=== PATIENT | female | born 1975 | race Caucasian/White ===

== ENCOUNTER 2024-02-06 03:16 | Observation (INO) | payer BC, SELFPAY ==
[2024-02-06] VITALS (14 sets, daily range): BP systolic 113–142; BP diastolic 46–81; BMI 42.6; BMI 42.7
[2024-02-06] MEDS: TORADOL 30 MG IV ×3 (00:41→23:49)
[2024-02-06] MEDS: ZOFRAN 4 MG IV ×2 (00:42→03:35)
[2024-02-06] MEDS: NSS 1000 IV (00:47)
[2024-02-06 00:55] LABS: % Basophils 0.4 % (0-2); % Eosinophils 0.5 % (0-6); % Immature Granulocytes 0.5 % (0-0.5); % Monocytes 7.9 % (1.7-9.3); % Neutrophils 66.7 % (42.2-75.2); Absolute Lymphocytes 1.9 10^3/uL (1.2-3.4); Absolute Monocytes 0.6 10^3/uL (0.1-0.6); Absolute Neutrophils 5.2 10^3/uL (1.4-6.5); Hemoglobin 13.2 g/dL (12.0-16.0); Mean Corp Hgb Conc. 34.7 g/dL (33.0-37.0); Mean Corpuscular Hgb 31.3 pg (27.0-31.0); Mean Platelet Volume 10.6 fL (7.4-10.4); Nucleated Red Blood Cells % 0 %; Platelet Count 183 10^3/uL (130-400); Red Blood Cell Count 4.22 10^6/uL (4.20-5.40); Red Cell Dist. Width 12.5 % (11.5-14.5); White Blood Cell Count 7.8 10^3/uL (4.8-10.8)
[2024-02-06 01:09] LABS: HCG, Serum Qualitative Screen Negative
--- NOTE | 2024-02-06 01:10 | ED.GENMED ---
History of Present Illness
General
Chief Complaint: Flank Pain
Source: patient
Exam Limitations: none
Time Seen by Provider: 02/06/24 00:33
Travel History
Have you had any contact with someone who has COVID-19?: No
Do you have any symptoms of coronavirus? Fever > 100 degrees, chills, cough, shortness of breath, sore throat, loss of taste or smell, muscle aches, or headache?: No
History of Present Illness
History of Present Illness:
This is a 49 year old female that comes in with c/o flank pain. States that she has right flank pain. States that she had some discomfort on and off for about 1. 5 weeks. Then tonight she has severe pain and she started with vomiting. Denies any
fever, chills, chest pain, SOB, diarrhea, headache, dizziness, urinary burning.
Past History
Past History
ED Past Medical History: Hypercholesterolemia and Psychiatric (Depression)
ED Past Surgical History: Tonsilectomy (and adenoids)
Social History
Tobacco: Former smoker
Alcohol: Occasional
Personal:
Living: with family
Review of Systems
Review of Systems
All Other Systems: ROS reviewed and negative except as documented in HPI and ROS
Constitutional: Reports no symptoms; Denies fever or chills
EENT: Reports no symptoms
Respiratory: Reports no symptoms; Denies cough or trouble breathing
Cardiac: Reports no symptoms; Denies chest pain
ABD/GI: Reports nausea and vomiting; Denies abdominal pain or diarrhea
: Reports flank pain; Denies dysuria, frequency or urgency
Musculoskeletal: Reports no symptoms
Skin: Reports no symptoms
Neurological: Reports no symptoms; Denies dizzy or headache
Psychiatric: Reports no symptoms
Phy Exam
General Physical Exam
General Presentation: moderate distress
General age: appears stated age
General Skin: warm and dry
General Habitus: normal
General Mental: alert
General Hydration: appears well hydrated
ENT Exam
ENT Exam: TM's normal, pharynx normal and neck supple
Eye Exam
Eye Exam: EOMI
Cardiovascular Exam
Cardiovascular Exam: regular rate/rhythm, no edema, no murmur and normal peripheral pulses
Pulmonary Exam
Pulmonary Exam: lungs clear, no respiratory distress, no rales, chest non tender, no crackles, no rhonchi, no wheezing and no cough
Gastrointestinal Exam
Gastrointestinal Exam: normal bowel sounds, soft, no organomegaly, no pulsatile mass, non distended, cva tenderness (Right sided slight) and tender (Very sight right sided tenderness)
Musculoskeletal Exam
Musculoskeletal Exam: full ROM and no edema
Skin Exam
Skin Exam: normal color, warm/dry, no rash and no petechia
Psychiatric Exam
Psychiatric Exam: normal mood/affect
Course
Orders/Labs/Results
Orders:
Orders
02/06/24 00:38
Ketorolac [Toradol] 30 mg .ROUTE .STK-MED ONE
Ondansetron Injectable [Zofran] 4 mg .ROUTE .STK-MED ONE
02/06/24 00:39
IV Insert/Care/Rem.- Treatment PRN
Test Result ONCE
02/06/24 00:40
Ketorolac [Toradol] 30 mg IV NOW STA
Ondansetron Injectable [Zofran] 4 mg IV NOW STA
02/06/24 00:43
0.9% Sodium Chloride 1000 ml [Nss] 1,000 ml IV BOLUS
02/06/24 00:44
CT Abd/pel Without Iv Or Oral Urgent
Comment:
Reason For Exam: Right flank pain
Urinalysis Reflex To Culture Urgent
02/06/24 00:49
Complete Blood Count/With Diff Urgent
Comprehensive Metabolic Panel Urgent
HCG, Serum Qualitative Screen Urgent
02/06/24 01:42
Diphenhydramine [Benadryl] 50 mg .ROUTE .STK-MED ONE
Prochlorperazine [Compazine] 10 mg .ROUTE .STK-MED ONE
02/06/24 01:43
Diphenhydramine [Benadryl] 25 mg IM NOW STA
02/06/24 01:44
Diphenhydramine [Benadryl] 25 mg IV NOW STA
02/06/24 01:45
Prochlorperazine [Compazine] 10 mg IV NOW STA
Abnormal Lab Results
02/06/24
00:49
MCH 31.3 H pg
(27.0-31.0)
MPV 10.6 H fL
(7.4-10.4)
Glucose 144 H mg/dl
(70-99)
02/06/24 00:49
02/06/24 00:49
CBC normal. HCG negative. Glucose nonfasting
Vital Signs
Initial and Last Documented VS:
Initial Vital Signs
Temp Pulse Resp BP Pulse Ox
97.2 F 90 18 142/78 98
02/06/24 00:13 02/06/24 00:13 02/06/24 00:13 02/06/24 00:13 02/06/24 00:13
Last Documented Vital Signs
Temp Pulse Resp BP Pulse Ox
97.2 F 66 16 124/49 100
02/06/24 00:13 02/06/24 02:03 02/06/24 02:03 02/06/24 02:03 02/06/24 02:03
MDM/Problems Addressed
Differential Diagnosis Includes:
Renal calculus,
MDM/Problems Addressed:
This is a 49 year old female that comes in with c/o right flank pain. State that she has had some discomfort on and off for about 1.5 weeks. Then tonight she has severe pain and started to vomit.
Will get labs, CT scan and give IV fluids and medicate for pain and vomiting.
Back into see patient. Explained that she has a 12 mm stone in the proximal ureter. Spoke with Dr. Huggins and will have the house STAMP PAD FINISHER admit to his service. Plan to keep NPO and place stent today.
Chronic conditions affecting care:
NA
Acute Exacerbation and/or Progression of Chronic Illness:
NA
*Radiology
Radiology exam reviewed: radiology read reviewed (CT night hawk- 12 mm stone within the proximal right ureter resulting in moderate to severe right hydroureteronephrosis. Additional bilateral nonobstructing nephrolithiasis. No bowel obstruction.
Normal gallbladder and appendix. Incidental: no hepatic or pancreatic mass. No abd aortic aneurysm.. ) and other (CT cont- No acuet osseous abnormality. No acute abnormality with in the visualized lungs. No acute abnormality within the visualized
soft tissues. )
*Pulse Oximetry
Patient hypoxic: no
*EKG
Interpreted by ED Provider?: NA
Rate: EKG- N/A
*Maintenance Mechanic Supervisor Interpretation
Rate: Maintenance Mechanic Supervisor- N/A
*Critical Care Note
Total Time (30-74mins, 75-104mins- exclusive of procedures): Not Applicable
ED Attending Note
-
Portions of this chart may have been created with voice recognition software.� Occasional wrong word or��sound alike� substitutions may have occurred due to the inherent limitations of voice recognition software.
Discharge Plan
Departure
Patient Disposition: Admit
Date of Disposition: 02/06/24
Time of Disposition: 02:38
Admit to: Med/Surg
Presentation/result/management discussed w/ accepting MD/DO: Dr. Joseluis
Patient with high blood pressure during this ER visit?: No
Condition: Good
Discharge Problem:
Renal calculus, right
Prescriptions:
No Action
atorvastatin [Lipitor] 10 mg Tablet
10 mg PO DAILY
sertraline [Zoloft] 25 mg Tablet
25 mg PO DAILY
loratadine [Claritin] 10 mg Tablet
10 mg PO DAILY
calcium carbonate-vitamin D3 [Calcarb 600 With Vitamin D] 600 mg-10 mcg (400 unit) Tablet
1 tab PO DAILY
Probiotic 3 billion cell Capsule
3,000 mmu cells PO DAILY
Scaleform Immune Health 45-3.75-50 mg Tablet,Chewable
1 tab PO DAILY
Referrals:
PRIVATE,PHYSICIAN [Family Provider] -
Interventions
Interventions:
*Risk Screen - Suicide Last Done: 02/06/24 00:13
*General Assessment Last Done: 02/06/24 00:28
*Neglect/Abuse Screening Last Done: 02/06/24 00:13
ED- Fall Risk Assessment Last Done: 02/06/24 00:28
*ED COVID-19 Vaccine History Last Done: 02/06/24 00:28
XS-Bctlia-Mfuvlltfrk Assessment Last Done: 02/06/24 00:28
ED-Female Genitourinary Assessment Last Done: 02/06/24 00:28
Discharge Date and Time
Print Language: NIGERIAN
[2024-02-06 01:11] LABS: ALT (SGPT) 22 U/L (0-35); AST (SGOT) 25 U/L (14-36); Albumin 4.2 g/dl (3.5-5.0); Alkaline Phosphatase 58 U/L (38-126); Blood Urea Nitrogen 14 mg/dl (7-17); Calcium 9.2 mg/dl (8.4-10.2); Carbon Dioxide 26 mmol/L (22-30); Chloride 104 mmol/L (98-107); Estimated Creatinine Clearance 104 ml/min; Glucose 144 mg/dl (70-99); Potassium 3.6 mmol/L (3.5-5.1); Sodium 137 mmol/L (135-145); Total Bilirubin 0.4 mg/dl (0.2-1.3); eGFR > 60.00
[2024-02-06] MEDS: COMPAZINE 10 MG IV (01:45)
[2024-02-06] MEDS: BENADRYL 25 MG IV (01:46)
[2024-02-06] MEDS: FLOMAX 0.400000000000000022 MG PO (02:31)
[2024-02-06 03:45] LABS: Urine Albumin Trace (Neg - Trace); Urine Bilirubin Negative (Negative); Urine Character Slightly Cloudy (Clear); Urine Color Yellow; Urine Glucose Negative (Negative); Urine Ketone 3+ (Negative); Urine Leukocyte 2+ (Negative); Urine Nitrite Negative (Negative); Urine Occult Blood 3+ (Negative); Urine Specific Gravity 1.025 (<1.030); Urine Urobilinogen Negative (Neg - 1+)
[2024-02-06 04:11] LABS: Urine Bacteria Moderate (Negative); Urine Squamous Cell 0-2 /LPF (Few); Urine White Cell 16-20 /HPF (0-5)
--- NOTE | 2024-02-06 04:35 | HPS.HSE ---
Addendum entered and electronically signed by Darinel Huggins Jr., MD 02/06/24 07:07:
pt seen independently this am
reviewed pmh/exam and labs-ct
to OR today for cysto/right ureteral stent
reviewed risks, benefits, alternatives and disabilities including romy for second stage procedure and possible need for perc tube given large stone size
pt consents- will bring to OR when room available
Original Note:
Family Physician
-
Family Physician: PHYSICIAN PRIVATE
Chief Complaint
-
right flank pain and vomiting
History of Present Illness
This is a pleasant but clearly uncomfortable 49 year old female who come to the ED with worsening right flank pain and vomiting. The pain has steadily increased over the past week or so with nothing making it better at home. PMH includes
hypercholesterolemia and depression. Previous U/S on 12/14/2017 found several non-obstructing kidney stones on R and L sides. Toradol has been effective for her pain in ED but nausea appears to be bothersome. Compazine and Zofran has been given with
some effect.
Medical History
Past Medical History
Past Medical History: Reports Hypercholesterolemia, Psychiatric (depression) and Other
Additional Past Medical History:
kidney stones
Past Surgical History: Reports Tonsilectomy
Social History
Tobacco: Former Smoker
Alcohol: Occasional
Drug: None
Personal:
Living: With Family
Employment: Employed
Family History
Family History: Hypertension
Allergies / Home Medications
Allergies reflects when Allergies were last updated in [facility].
Home Medications with original date entered in [facility]
Allergy/Medication List:
Allergies
Allergy/AdvReac Type Severity Reaction Status Date / Time
latex AdvReac Unknown Verified 02/06/24 00:16
Adhesives AdvReac Itching Uncoded 02/06/24 00:16
oral antibiotics AdvReac GI upset Uncoded 02/06/24 00:16
Home Medications
atorvastatin 10 mg tablet (Lipitor) 10 mg PO DAILY 02/06/24
calcium carbonate 600 mg-vitamin D3 10 mcg (400 unit) tablet 1 tab PO DAILY 02/06/24
lactobacillus combination no.4 3 billion cell capsule (Probiotic) 3,000 mmu cells PO DAILY 02/06/24
loratadine 10 mg tablet (Claritin) 10 mg PO DAILY 02/06/24
sertraline 25 mg tablet (Zoloft) 25 mg PO DAILY 02/06/24
vitamin C 45 mg-zinc citrate 3.75 mg-elderberry 50 mg chewable tablet (swabr) 1 tab PO DAILY 02/06/24
Review of Systems
-
History Source: Patient and Coordinated Provider
Constitutional: Reports Fatigue
EENT: Reports No Symptoms
Respiratory: Reports No Symptoms
Cardiac: Reports No Symptoms
Abdomen/GI: Reports Nausea
: Reports Flank Pain (right)
Musculoskeletal: Reports No Symptoms
Skin: Reports No Symptoms
Neurological: Reports No Symptoms
Endocrine: Reports No Symptoms
Hematologic/Lymphatic: Reports No Symptoms
Psych: Reports No Symptoms
Physical Exam
Vital Signs
Vital Signs
Temp Pulse Resp BP Pulse Ox
98.3 F 77 16 140/81 95
02/06/24 04:29 02/06/24 04:29 02/06/24 04:29 02/06/24 04:29 02/06/24 04:29
Physical Exam
General: Well Developed, Well Nourished and Pain
HEENT: NormoCephalic, Atraumatic and PERRLA
Respiratory: Clear and Non Labored Respirations
Cardiac: Regular Rhythm
Breast: Deferred by me
GI: Soft, Non Tender and Non Distended
Rectal: Deferred by Provider
Genito-urinary: Clear Urine
Musculoskeletal: No Clubbing and No Cyanosis
Skin: Warm and Dry
Neuro: Awake, Alert, AO x 3, No Motor Deficits and Nonfocal/grossly intact
Hematologic/Lymphatic: No Lymphadenopathy
Psych: Calm
Laboratory Results
-
Laboratory Results
Total Bilirubin 0.4 mg/dl (0.2-1.3) 02/06/24 00:49
AST 25 U/L (14-36) 02/06/24 00:49
ALT 22 U/L (0-35) 02/06/24 00:49
Alkaline Phosphatase 58 U/L (38-126) 02/06/24 00:49
Data Reviewed
-
CT Scan: Report Reviewed by me
Lab Data: Labs Reviewed by me
Old Records: Reviewed
Impression/Plan
-
IMPRESSION: right hydroureteronephrosis
PLAN: This is a pleasant but clearly uncomfortable 49 year old female who come to the ED with worsening right flank pain and vomiting. The pain has steadily increased over the past week or so with nothing making it better at home. PMH includes
hypercholesterolemia and depression. Previous U/S on 12/14/2017 found several non-obstructing kidney stones on R and L sides. Toradol has been effective for her pain in ED but nausea appears to be bothersome. Compazine and Zofran has been given with
some effect.
*Severe right hydroureteronephrosis: NPO, Zofran IV, dilaudid IV pain, NS IVF.
*Hypercholesterolemia: Lipitor
*Depression: Zoloft
*DVT propylaxis: SCDs, oob
*Disposition: FC. Urology Service
--- NOTE | 2024-02-06 06:06 | PTCARENOTE ---
Pt arrived to floor from ED at aprox 0420 this am. Pt having nausea and was already given zofran and compazine in ED. No medications due at this time. Pt with no pain. Pt admission and assessment done. Vitals stable. Pt instructed to ring for
assistance.
[2024-02-06] MEDS: DILAUDID 1 MG IV (07:22)
[2024-02-06] MEDS: PHENERGAN 51 MG IV (07:30)
[2024-02-06 08:17] LABS: Hematocrit 37.2 % (37.0-47.0); Hemoglobin 12.7 g/dL (12.0-16.0); Mean Corp Hgb Conc. 34.1 g/dL (33.0-37.0); Mean Corpuscular Hgb 31.1 pg (27.0-31.0); Mean Corpuscular Volume 91.2 fL (81.0-99.0); Mean Platelet Volume 11.5 fL (7.4-10.4); Platelet Count 168 10^3/uL (130-400); Red Blood Cell Count 4.08 10^6/uL (4.20-5.40); Red Cell Dist. Width 12.6 % (11.5-14.5); White Blood Cell Count 7.6 10^3/uL (4.8-10.8)
[2024-02-06] MEDS: NSS with KCL 20 MEQ 1000 IV (08:20)
[2024-02-06] MEDS: TORADOL IV (08:26)
[2024-02-06 09:05] LABS: Blood Urea Nitrogen 14 mg/dl (7-17); Calcium 8.8 mg/dl (8.4-10.2); Carbon Dioxide 24 mmol/L (22-30); Chloride 105 mmol/L (98-107); Estimated Creatinine Clearance 102 ml/min; Glucose 131 mg/dl (70-99); Potassium 4.1 mmol/L (3.5-5.1); Sodium 133 mmol/L (135-145); eGFR > 60.00
--- NOTE | 2024-02-06 12:44 | W.IMMPOSTOP ---
Surgical Immed Post Op Note
-
Primary Surgeon:
jenny
Assisting Surgeon:
Pre-op Diagnosis:
obstructing right ureteral stone
Post-op Diagnosis:
same
Procedure Performed:
cysto/right retrograde/right ureteral stent
Anesthesia Type:
gen
Specimen / Cultures:
ucx
Estimated Blood Loss:
2cc
Complications:
none
Operative Findings:
sig impaction/obstruction of right ureter from large stone
original pass of outside ureteral lumen with extrav of contrast
was able to reposition wire into renal pelvis and place 05/09 stent
pedraza placed
relayed findings to and
she currently feels good in pacu- no fevers/pain or nausea
will observe- perc tube placement for any decline clinically
--- NOTE | 2024-02-06 13:17 | CM ---
Reviewed the chart notes and spoke with the patient's spouse at the bedside. Patient to OR. The patient is being admitted under observational status. Observational letter provided and explained. No questions with regards to the letter.
The patient resides with her spouse in a two story home with two steps to enter. The patient uses no DME/no VN/no SNF. The patient's pharmacy of choice is the [facility] Nomi Su CM continues to be available to patient/family and is
monitoring medical plan for needs at discharge.
Plan: Discharge to home with no anticipated needs being identified at this time.
[2024-02-06] MEDS: OSCAL 500 + D PO (13:21)
[2024-02-06] MEDS: VISBIOME PO (13:21)
--- NOTE | 2024-02-06 13:51 | PTCARENOTE ---
Pt arrived back to 2 [address] from PACU s/p cysto, R stent placement. Pt AAOx3, IVF infusing, Bearden catheter in place with stat lock. Pt states no pain at this time. Pt re-oriented to call henley and room, bed locked and in lowest position, call henley
within reach.
[2024-02-06] MEDS: ZOLOFT 25 MG PO (21:26)
[2024-02-06] MEDS: CLARITIN 10 MG PO (21:26)
[2024-02-06] MEDS: LIPITOR 10 MG PO (21:26)
[2024-02-07 03:20] VITALS: BP 119/74
[2024-02-07 06:25] LABS: Hematocrit 36.9 % (37.0-47.0); Hemoglobin 12.3 g/dL (12.0-16.0); Mean Corp Hgb Conc. 33.3 g/dL (33.0-37.0); Mean Corpuscular Volume 92.9 fL (81.0-99.0); Platelet Count 171 10^3/uL (130-400); Red Blood Cell Count 3.97 10^6/uL (4.20-5.40); Red Cell Dist. Width 12.6 % (11.5-14.5); White Blood Cell Count 7.5 10^3/uL (4.8-10.8)
[2024-02-07 06:58] LABS: Blood Urea Nitrogen 12 mg/dl (7-17); Calcium 8.7 mg/dl (8.4-10.2); Carbon Dioxide 27 mmol/L (22-30); Chloride 107 mmol/L (98-107); Estimated Creatinine Clearance 102 ml/min; Glucose 102 mg/dl (70-99); Sodium 137 mmol/L (135-145); eGFR > 60.00
[2024-02-07 07:08] VITALS: BP 134/82
--- NOTE | 2024-02-07 08:39 | W.PN.URO.CBU ---
Today's Communication / Plan
-
KUB
continue pedraza
plan to remove pedraza in am and likely discharge
Assessment / Plan
-
large obstructing right sided stone- difficult stent placement
? UTI
pt feeling well
labs nl
check KUB
keep pedraza additional 24hrs- then remove
continue levaquin- await ucx
Diagnosis
-
Date of Service: February 07, 2024
-
Patient Diagnosis:
large obstructing stone
UTI
Post Op Day:
right ureteral stent placement 02/05
Subjective
-
pt feels great
no pain
eating
had been UOON
urine clear
no fevers/wbc nl- ucx pending
Objective
-
Vital Signs
Temp Pulse Resp BP Pulse Ox
99 F 83 17 134/82 95
02/07/24 07:08 02/07/24 07:08 02/07/24 07:08 02/07/24 07:08 02/07/24 07:08
Intake and Output
02/06/24 02/07/24 02/08/24
06:59 06:59 06:59
Intake Total 1110 / 1110
Output Total 2775 / 2775
Balance -1665 / -1665
Intake:
Oral fluids 960 / 960
IV fluids (Total) 150 / 150
Normosol 150 / 150
Output:
Urine, Pedraza 1725 / 1725
Urine, Voided 1050 / 1050
Laboratory Results
02/07/24 05:16
02/07/24 05:16
Review of Systems
-
Constitutional: No Symptoms
Respiratory: No Symptoms
Cardiac: No Symptoms
Abdomen/GI: No Symptoms
Physical Exam
-
General - no acute distress
Abdomen - soft, non-tender
Genitalia - normal- pedraza in place
[2024-02-07] MEDS: OSCAL 500 + D 500 MG PO (09:26)
[2024-02-07] MEDS: TORADOL 30 MG IV ×2 (09:26→16:33)
[2024-02-07] MEDS: VISBIOME 1 CAP PO (09:26)
[2024-02-07] MEDS: LEVAQUIN 100 IV (09:28)
[2024-02-07 11:28] VITALS: BP 145/80
--- NOTE | 2024-02-07 14:32 | CM ---
CM reviewed chart- ADC tomorrow
Likely plan for home tomorrow without pedraza
Discharge Disposition- home, anticipate no needs
[2024-02-07 15:41] VITALS: BP 127/83
[2024-02-07] MEDS: Pyridium 100 MG PO (16:33)
[2024-02-07] MEDS: FLUSH (NSS) 2 FLUSH IV (16:34)
[2024-02-07] MEDS: ZOLOFT 25 MG PO (20:27)
[2024-02-07] MEDS: LIPITOR 10 MG PO (20:27)
[2024-02-07] MEDS: CLARITIN 10 MG PO (20:27)
[2024-02-07 23:30] VITALS: BP 130/83
[2024-02-08] MEDS: Pyridium 100 MG PO ×2 (00:16→08:27)
[2024-02-08] MEDS: FLUSH (NSS) 2 FLUSH IV (00:17)
[2024-02-08] MEDS: TORADOL 30 MG IV (00:17)
[2024-02-08 03:30] VITALS: BP 126/80
--- NOTE | 2024-02-08 07:06 | W.PN.URO.CBU ---
Today's Communication / Plan
-
home after lunch if stable
Assessment / Plan
-
large obstructing right sided stone- difficult stent placement
? UTI
pt feeling well
pedraza out
discharge today
will send out on cefdinir and follow final cx results
Diagnosis
-
Date of Service: February 08, 2024
-
Patient Diagnosis:
large obstructing stone
UTI
Post Op Day:
right ureteral stent placement 02/05
Subjective
-
pt feels good
no fevers
pedraza out for TOV
KUB shows well positioned stent
Objective
-
Vital Signs
Temp Pulse Resp BP Pulse Ox
98.7 F 66 16 126/80 95
02/08/24 03:30 02/08/24 03:30 02/08/24 03:30 02/08/24 03:30 02/08/24 03:30
Intake and Output
02/07/24 02/08/24 02/09/24
06:59 06:59 06:59
Intake Total 1110 / 1110 2080 / 2080
Output Total 2775 / 2775 3550 / 3550
Balance -1665 / -1665 -1470 / -1470
Intake:
Oral fluids 960 / 960 1979 / 1979
IV fluids (Total) 150 / 150
Normosol 150 / 150
IV piggybacks 100 / 100
Output:
Urine, Pedraza 1725 / 1725 2825 / 2825
Urine, Voided 1050 / 1050 725 / 725
Laboratory Results
02/07/24 05:16
02/07/24 05:16
Review of Systems
-
Constitutional: No Symptoms
Respiratory: No Symptoms
Cardiac: No Symptoms
Abdomen/GI: No Symptoms
Physical Exam
-
General - no acute distress
[2024-02-08 07:50] VITALS: BP 142/94
[2024-02-08] MEDS: OSCAL 500 + D 500 MG PO (08:27)
[2024-02-08] MEDS: VISBIOME 1 CAP PO (08:27)
[2024-02-08] MEDS: LEVAQUIN 100 IV (09:10)
[2024-02-08 11:15] VITALS: BP 136/87
== END 2024-02-08 11:34 | disposition home or self-care (01) ==
LOC: 2 SOUTH 03:16
PROVIDERS: Clinical Nurse Specialist Family Health; Registered Nurse; ADMITTING PHYSICIAN Specialist; EMERGENCY PHYSICIAN Emergency Medicine
DX: N13.6 Pyonephrosis (principal); R11.2 Nausea with vomiting, unspecified; E78.00 Pure hypercholesterolemia, unspecified; F32.A Depression, unspecified; Z87.891 Personal history of nicotine dependence; Z87.442 Personal history of urinary calculi; Z88.1 Allergy status to other antibiotic agents; Z91.040 Latex allergy status
CPT/HCPCS: 52332; 74420; 74018; 74176; 76000; 80048; 80053; 81003; 81015; 84703; 85025; 85027; 87077; 87086; 87147; 87186; 96361; 96374; 96375; 99285; A4300; C2617; G0378

== ENCOUNTER 2024-02-23 06:05 | Day surgery (SDC) | payer BC, SELFPAY ==
[2024-02-23] VITALS (10 sets, daily range): BP systolic 111–126; BP diastolic 50–69; BMI 40.7
[2024-02-23] MEDS: NORMOSOL-R 1000 IV (06:35)
[2024-02-23 07:24] LABS: Urine Albumin 1+ (Neg - Trace); Urine Bilirubin 1+ (Negative); Urine Character Very Cloudy (Clear); Urine Color Amber; Urine Glucose Negative (Negative); Urine Ketone Trace (Negative); Urine Leukocyte 2+ (Negative); Urine Nitrite Positive (Negative); Urine Occult Blood 4+ (Negative); Urine Specific Gravity 1.025 (<1.030); Urine Urobilinogen 2+ (Neg - 1+)
[2024-02-23 07:43] LABS: Urine Bacteria Many (Negative); Urine Red Blood Cell 50-60 /HPF (0-2); Urine Squamous Cell 26-30 /LPF (Few); Urine White Cell 30-40 /HPF (0-5)
[2024-02-23] MEDS: ZOFRAN 4 MG IV (09:09)
[2024-02-27 15:08] LABS: Stone Analysis Mass 33 mg
== END 2024-02-23 10:57 | disposition home or self-care (01) ==
LOC: SDS 06:05
PROVIDERS: ATTENDING PHYSICIAN Specialist
DX: N20.2 Calculus of kidney with calculus of ureter (principal)
CPT/HCPCS: 52356; 74018; 76000; 81003; 81015; 82365; 87086; 87147; 87186; C2617

== ENCOUNTER → 2024-06-25 18:55 | Outpatient (REF) | payer BC, SELFPAY | LOC: WDC 18:55 | PROVIDERS: ATTENDING PHYSICIAN Obstetrics & Gynecology Gynecology | DX: Z12.31 Encounter for screening mammogram for malignant neoplasm of breast (principal) | CPT/HCPCS: 77063; 77067 ==

== ENCOUNTER → 2024-12-18 13:35 | Outpatient (REF) | payer BC, SELFPAY | LOC: RAD 13:35 | PROVIDERS: ATTENDING PHYSICIAN Specialist; FAMILY PHYSICIAN Family Medicine Adult Medicine | DX: N20.0 Calculus of kidney (principal) | CPT/HCPCS: 74018 ==

== ENCOUNTER 2024-12-22 01:05 | Emergency (ER) | payer BC, SELFPAY ==
[2024-12-22 01:21] VITALS: BP 126/95
[2024-12-22 01:54] LABS: % Basophils 0.5 % (0-2); % Eosinophils 2.4 % (0-6); % Immature Granulocytes 0.1 % (0-0.5); % Lymphocytes 43.8 % (20.5-51.1); % Monocytes 8.9 % (1.7-9.3); % Neutrophils 44.3 % (42.2-75.2); Absolute Eosinophils 0.2 10^3/uL (0-0.7); Absolute Lymphocytes 3.6 10^3/uL (1.2-3.4); Absolute Monocytes 0.7 10^3/uL (0.1-0.6); Absolute Neutrophils 3.6 10^3/uL (1.4-6.5); Hemoglobin 14.3 g/dL (12.0-16.0); Mean Corpuscular Hgb 31.4 pg (27.0-31.0); Mean Corpuscular Volume 92.3 fL (81.0-99.0); Mean Platelet Volume 11.5 fL (7.4-10.4); Nucleated Red Blood Cells % 0 %; Platelet Count 227 10^3/uL (130-400); Red Blood Cell Count 4.55 10^6/uL (4.20-5.40); Red Cell Dist. Width 13.2 % (11.5-14.5); White Blood Cell Count 8.2 10^3/uL (4.8-10.8)
[2024-12-22 02:04] LABS: ALT (SGPT) 22 U/L (0-35); AST (SGOT) 24 U/L (14-36); Alkaline Phosphatase 45 U/L (38-126); Blood Urea Nitrogen 12 mg/dl (7-17); Carbon Dioxide 27 mmol/L (22-30); Chloride 101 mmol/L (98-107); Glucose 96 mg/dl (70-99); Potassium 3.8 mmol/L (3.5-5.1); Sodium 141 mmol/L (135-145); Total Bilirubin 0.9 mg/dl (0.2-1.3); Total Protein 7.6 g/dl (6.3-8.2); eGFR > 60.00
--- NOTE | 2024-12-22 03:18 | ED.GENMED ---
History of Present Illness
General
Chief Complaint: Flank Pain
Source: patient
Exam Limitations: none
Time Seen by Provider: 12/22/24 03:07
Nursing documentation reviewed up to this point in time: agreed with
History of Present Illness
History of Present Illness:
This is a 49-year-old woman who has history of kidney stones, follows with Dr. Huggins and underwent stone removal with stent placement January 2024.
She states on December 17 she developed somewhat abrupt mild left lower quadrant to left flank pain accompanied with multiple episodes of nausea and vomiting, noted to have low-grade fever at that time. Symptoms resolved the following day and she spoke
with Dr. Huggins and underwent outpatient urinalysis with urine culture on December 18 as well as KUB film. Urinalysis and urine culture were negative.
KUB film shows cluster of calculi projecting over the lower pole of the left kidney measuring 1.4 cm in size, 0.3 cm calculus overlying the mid pole of the right kidney. Small pelvic phleboliths.
Over the past several days she admits to overall not feeling well, mild fatigue, intermittent headache but no cough nor congestion nor return of fever, no dysuria and urgency and or hematuria. Current symptoms feel very similar to previous episodes
of kidney stones. Tonight she developed mild return of left flank to left lower quadrant pain but has had no return of nausea nor vomiting. Current symptoms feel similar to previous episodes of ureteric stones.
She denies risk of , last menstrual period December 06.
Past History
Past History
ED Past Medical History: Hypercholesterolemia, Psychiatric (Depression) and Other (Kidney stones)
ED Past Surgical History: Tonsilectomy (and adenoids) and Urological (Kidney stone removal with stent placement January 2024)
Social History
Tobacco: Former smoker
Alcohol: Occasional
Personal:
Living: with family
Employment: Employed
Family History
Family History: Other (Noncontributory)
Phy Exam
Physical Exam
Physical Exam:
GENERAL: 49-year-old woman appears her stated age, awake and alert, pleasant, appears in no acute distress. Afebrile.
EYE: anicteric
NECK: Supple, nontender, no meningismus, no significant adenopathy.
ENT: oral mucosa is moist. No rhinorrhea.
CARDIAC: Regular rate and rhythm. no murmur.
LUNGS: Clear breath sounds bilaterally, no acute respiratory distress, no wheezes/rales/rhonchi
ABDOMEN: Soft, nondistended, without focal tenderness, no r/g, no cvat. normoactive BS.
NEUROLOGICAL: Alert and oriented x3, no focal neuro deficits. Gait is yoon and steady.
SKIN: Warm and dry, normal color, skin intact. No rash.
MUSCULOSKELETAL: No C/C/E. peripheral pulses are full and equal b/l. No palpable tenderness.
PSYCH: Normal and appropriate interaction.
Course
Orders/Labs/Results
Orders:
Orders
12/22/24 01:38
Complete Blood Count/With Diff Urgent
Comprehensive Metabolic Panel Urgent
12/22/24 03:17
CT Abd/pel Without Iv Or Oral Urgent
Comment:
Reason For Exam: acute left flank pain hx stones
12/22/24 03:52
Urinalysis Reflex To Culture Urgent
Date Specimen was Collected: 12/22/24
Time Specimen was Collected: 01:30
Urine Microscopic Reflex Cult Urgent
Urine Culture Urgent
MILA Source: U
Specimen Description:
Date Specimen was Collected: 12/22/24
Time Specimen was Collected: 01:30
12/22/24 04:42
Fosfomycin [Monurol] 3 gm PO ONCE ONE
Abnormal Lab Results
12/22/24 12/22/24
01:38 03:52
MCH 31.4 H pg
(27.0-31.0)
MPV 11.5 H fL
(7.4-10.4)
Absolute Lymphs (auto) 3.6 H 10^3/uL
(1.2-3.4)
Absolute Monos (auto) 0.7 H 10^3/uL
(0.1-0.6)
Urine Ketones 1+ A
(Negative)
Ur Occult Blood Reflex 1+ A
(Negative)
Leukocyte Esterase Rfl 1+ A
(Negative)
Urine WBC (Reflex) 16-20 A /HPF
(0-5)
Urine Bacteria (Reflex) Many A
(Negative)
Urine Albumin (Reflex) 2+ A
(Neg - Trace)
12/22/24 01:38
12/22/24 01:38
Vital Signs
Initial and Last Documented VS:
Initial Vital Signs
Temp Pulse Resp BP Pulse Ox
98.1 F 88 18 126/95 97
12/22/24 01:21 12/22/24 01:21 12/22/24 01:21 12/22/24 01:21 12/22/24 01:21
Last Documented Vital Signs
Temp Pulse Resp BP Pulse Ox
98.1 F 88 18 118/64 94
12/22/24 01:21 12/22/24 01:21 12/22/24 01:21 12/22/24 04:00 12/22/24 04:15
MDM/Problems Addressed
Differential Diagnosis Includes:
Concern for ureteric stone, gastroenteritis, constipation.
Urinalysis from December 18 results reviewed on patient's portal for [facility]. Negative WBCs, negative RBCs, negative bacteria. Urine culture showed no growth. UTI is less likely.
Labs thus far unremarkable.
Will check CT abdomen pelvis.
Chronic conditions affecting care: Other (History of kidney stones)
*Radiology
Radiology exam reviewed: radiology read reviewed
*Pulse Oximetry
Patient hypoxic: no
*Critical Care Note
Total Time (30-74mins, 75-104mins- exclusive of procedures): Not Applicable
Update Note
Update Note:
04:45
Patient continues to appear comfortable. Abdomen is soft without appreciable tenderness. No nausea or vomiting. She remains afebrile.
CAT scan shows bilateral nonobstructing stones. No ureteral calculi on either side. There is questionable very mild hydronephrosis on the right, questionably reflecting recently passed stone. However this is not consistent with patient's
complaints of intermittent left flank pain.
Urinalysis is a contaminated specimen with greater than 30 squamous epithelial cells but does show many bacteria, 16-20 WBCs, 0-2 RBCs and calcium oxalate crystals are seen.
It is reassuring that urinalysis from just 3 days ago was negative and urine culture from 3 days ago was negative. For potential recent/acute UTI will treat with a one-time dose of Monurol and await urine culture.
Discussed importance of staying well-hydrated on a daily basis.
Follow-up with urology for recheck.
ED Attending Note
-
Portions of this chart may have been created with voice recognition software.� Occasional wrong word or��sound alike� substitutions may have occurred due to the inherent limitations of voice recognition software.
Discharge Plan
Departure
Patient Disposition: Home (Routine Discharge)
Date of Disposition: 12/22/24
Time of Disposition: 04:44
Patient with high blood pressure during this ER visit?: No
Condition: Good
Discharge Problem:
Acute left flank pain, Bacteriuria
Instructions: Flank Pain (DC)
Prescriptions:
No Action
atorvastatin [Lipitor] 10 mg Tablet
10 mg PO DAILY
sertraline [Zoloft] 25 mg Tablet
25 mg PO DAILY
loratadine [Claritin] 10 mg Tablet
10 mg PO DAILY
calcium carbonate-vitamin D3 600 mg-10 mcg (400 unit) Tablet
1 tab PO DAILY
Probiotic 3 billion cell Capsule
3,000 mmu cells PO DAILY
Abroad101 45-3.75-50 mg Tablet,Chewable
1 tab PO DAILY
tramadol 50 mg tablet
50 mg PO Q8H PRN (Reason: Pain) Qty: 20 0RF
phenazopyridine [Pyridium] 100 mg tablet
100 mg PO BID Qty: 60 0RF
levofloxacin 500 mg Tablet
500 mg PO DAILY
Referrals:
Atilio Miles DO [Family Provider] -
Darinel Huggins Jr., MD [Active] - Call in 1-3 days for appt
Interventions
Interventions:
*Risk Screen - Suicide Last Done: 12/22/24 01:21
*General Assessment Last Done: 12/22/24 03:48
*Neglect/Abuse Screening Last Done: 12/22/24 03:48
*ED- Fall Risk Assessment Last Done: 12/22/24 03:48
*ED COVID-19 Vaccine History Last Done: 12/22/24 03:48
OB-Lpjwci-Tnypyrqmyj Assessment Last Done: 12/22/24 03:48
ED-Female Genitourinary Assessment Last Done: 12/22/24 03:48
Discharge Date and Time
Print Language: TELUGU
[2024-12-22 03:51] VITALS: BP 124/70
[2024-12-22 04:00] VITALS: BP 118/64
[2024-12-22 04:12] LABS: Urine Albumin 2+ (Neg - Trace); Urine Bilirubin Negative (Negative); Urine Character Clear (Clear); Urine Color Yellow; Urine Glucose Negative (Negative); Urine Ketone 1+ (Negative); Urine Leukocyte 1+ (Negative); Urine Nitrite Negative (Negative); Urine Occult Blood 1+ (Negative); Urine Specific Gravity 1.025 (<1.030); Urine Urobilinogen Negative (Neg - 1+)
[2024-12-22 04:26] LABS: Urine Squamous Cell >30 /LPF (Few)
[2024-12-22 04:29] LABS: Urine Bacteria Many (Negative); Urine Calcium Oxalate Crystals Seen; Urine Red Blood Cell 0-2 /HPF (0-2); Urine White Cell 16-20 /HPF (0-5)
[2024-12-22] MEDS: MONUROL 3 GM PO (04:56)
== END 2024-12-22 05:03 | disposition home or self-care (01) ==
LOC: EMR 01:05
PROVIDERS: EMERGENCY PHYSICIAN Emergency Medicine; FAMILY PHYSICIAN Family Medicine Adult Medicine
DX: N20.0 Calculus of kidney (principal); R82.71 Bacteriuria; E78.00 Pure hypercholesterolemia, unspecified; Z87.891 Personal history of nicotine dependence
CPT/HCPCS: 99284; 74176; 80053; 81003; 81015; 85025; 87086

== ENCOUNTER 2024-12-25 05:32 | Emergency (ER) | payer BC, SELFPAY ==
[2024-12-25 05:49] VITALS: BP 146/82
[2024-12-25] MEDS: NSS 1000 IV (06:09)
[2024-12-25] MEDS: ZOFRAN 4 MG IV (06:17)
[2024-12-25] MEDS: TORADOL 30 MG IV (06:18)
--- NOTE | 2024-12-25 06:30 | ED.GENMED ---
History of Present Illness
General
Chief Complaint: Flank Pain
Source: patient, records and previous radiology exam
Exam Limitations: none
Time Seen by Provider: 12/25/24 06:07
Nursing documentation reviewed up to this point in time: agreed with
History of Present Illness
History of Present Illness:
49-year-old female presents with right flank pain nausea vomiting chills but no fever history of kidney stones requiring operative intervention she has had decreased urination but no pain with urination mild cramping in her right lower abdomen and
right flank
Past History
Past History
ED Past Medical History: Hypercholesterolemia, Psychiatric (Depression) and Other (Kidney stones)
ED Past Surgical History: Tonsilectomy (and adenoids) and Urological (Kidney stone removal with stent placement January 2024)
Social History
Tobacco: Former smoker
Alcohol: Occasional
Drug: None
Personal:
Living: with family
Employment: Employed
Family History
Family History: Other (Noncontributory)
Review of Systems
Review of Systems
All Other Systems: Not applicable
Constitutional: Reports chills; Denies fever
EENT: Reports no symptoms
Respiratory: Reports no symptoms
Cardiac: Reports no symptoms
ABD/GI: Reports abdominal pain, nausea and vomiting
: Reports flank pain
Musculoskeletal: Reports no symptoms
Skin: Reports no symptoms
Neurological: Reports no symptoms
Phy Exam
Physical Exam
Physical Exam:
Physical Exam
General: no apparent distress, not acutely ill
Neck: Dry lip
Heart: s1/s2 regular rate and rhythm, no murmur. equal radial pulses.
Lungs: no acute respiratory distress. clear bilaterally
Abdomen: Mild right flank and right lower abdominal pain
Neuro: alert and oriented. no focal neurological deficits
Skin: no rash
Psychiatric: well kept. interactive and cooperative
Extremities: no edema.
Sepsis
Sepsis Screening
Sepsis Assessment: Sepsis Ruled Out
Sepsis Screen
Sepsis Screen: Sepsis Ruled Out
Date: 12/25/24
Time: 09:06
Course
Orders/Labs/Results
Orders:
Orders
12/25/24 06:02
IV Insert/Care/Rem.- Treatment PRN
Test Result ONCE
12/25/24 06:04
Complete Blood Count/With Diff Urgent
Comprehensive Metabolic Panel Urgent
HCG, Serum Qualitative Screen Urgent
Comment: Notify provider if positive test present
Lipase Urgent
12/25/24 06:09
0.9% Sodium Chloride 1000 ml [Nss] 1,000 ml IV BOLUS
12/25/24 06:16
Ketorolac [Toradol] 30 mg .ROUTE .STK-MED ONE
Ondansetron Injectable [Zofran] 4 mg .ROUTE .STK-MED ONE
12/25/24 06:17
Ketorolac [Toradol] 30 mg IV NOW STA
Ondansetron Injectable [Zofran] 4 mg IV NOW STA
12/25/24 06:23
CT Abd/pel Without Iv Or Oral Urgent
Comment:
Reason For Exam: r flakn
12/25/24 07:46
Urinalysis Reflex To Culture Urgent
Date Specimen was Collected: 12/25/24
Time Specimen was Collected: 06:02
Urine Microscopic Reflex Cult Urgent
Urine Culture Urgent
MILA Source: U
Specimen Description:
Date Specimen was Collected: 12/25/24
Time Specimen was Collected: 06:02
Abnormal Lab Results
12/25/24 12/25/24
06:04 07:46
MCH 31.1 H pg
(27.0-31.0)
MPV 11.3 H fL
(7.4-10.4)
Absolute Neuts (auto) 7.5 H 10^3/uL
(1.4-6.5)
Absolute Lymphs (auto) 0.7 L 10^3/uL
(1.2-3.4)
Neutrophils % 88.6 H %
(42.2-75.2)
Lymphocytes % 8.6 L %
(20.5-51.1)
Creatinine 0.5 L mg/dL
(0.6-1.0)
Glucose 131 H mg/dl
(70-99)
Urine Ketones 3+ A
(Negative)
Ur Occult Blood Reflex 2+ A
(Negative)
Urine RBC 11-15 A /HPF
(0-2)
Urine Bacteria (Reflex) Few A
(Negative)
Urine Albumin (Reflex) 1+ A
(Neg - Trace)
12/25/24 06:04
12/25/24 06:04
Vital Signs
Initial and Last Documented VS:
Initial Vital Signs
Temp Pulse Resp BP Pulse Ox
98.8 F 110 24 146/82 98
12/25/24 05:49 12/25/24 05:49 12/25/24 05:49 12/25/24 05:49 12/25/24 05:49
Last Documented Vital Signs
Temp Pulse Resp BP Pulse Ox
98.8 F 80 18 119/69 100
12/25/24 05:49 12/25/24 08:00 12/25/24 08:00 12/25/24 08:00 12/25/24 08:00
MDM/Problems Addressed
Differential Diagnosis Includes:
Kidney stone UTI appendicitis biliary pathology
MDM/Problems Addressed:
Right flank
Chronic conditions affecting care:
Kidney stone
Acute Exacerbation and/or Progression of Chronic Illness:
Kidney stone
*Radiology
Radiology exam reviewed: preliminary read by ED provider
*Pulse Oximetry
Patient hypoxic: no
*Upholstery Handler Interpretation
Rate: normal
Interpretation: normal
Heart Rate: 78
Rhythm: sinus
*Critical Care Note
Total Time (30-74mins, 75-104mins- exclusive of procedures): Not Applicable
Update Note
Update Note:
9 AM, labs CT scan noted
ED Attending Note
-
Portions of this chart may have been created with voice recognition software.� Occasional wrong word or��sound alike� substitutions may have occurred due to the inherent limitations of voice recognition software.
Discharge Plan
Departure
Patient Disposition: Home (Routine Discharge)
Date of Disposition: 12/25/24
Time of Disposition: 09:04
Patient with high blood pressure during this ER visit?: No
Condition: Good
Discharge Problem:
Acute flank pain
Instructions: Flank Pain (DC)
Prescriptions:
New
ondansetron 4 mg tablet,disintegrating
4 mg PO Q8H PRN (Reason: nausea and vomiting) Qty: 20 0RF
ibuprofen 600 mg tablet
600 mg PO Q8H PRN (Reason: Pain) Qty: 30 0RF
No Action
atorvastatin [Lipitor] 10 mg Tablet
10 mg PO DAILY
sertraline [Zoloft] 25 mg Tablet
25 mg PO DAILY
loratadine [Claritin] 10 mg Tablet
10 mg PO DAILY
calcium carbonate-vitamin D3 600 mg-10 mcg (400 unit) Tablet
1 tab PO DAILY
Probiotic 3 billion cell Capsule
3,000 mmu cells PO DAILY
[facility] 45-3.75-50 mg Tablet,Chewable
1 tab PO DAILY
tramadol 50 mg tablet
50 mg PO Q8H PRN (Reason: Pain) Qty: 20 0RF
phenazopyridine [Pyridium] 100 mg tablet
100 mg PO BID Qty: 60 0RF
levofloxacin 500 mg Tablet
500 mg PO DAILY
Referrals:
Atilio Miles DO [Family Provider] -
Interventions
Interventions:
*Risk Screen - Suicide Last Done: 12/25/24 05:49
*General Assessment Last Done: 12/25/24 06:11
*Neglect/Abuse Screening Last Done: 12/25/24 05:49
*ED- Fall Risk Assessment Last Done: 12/25/24 06:11
*ED COVID-19 Vaccine History Last Done: 12/25/24 06:11
HI-Rqupcr-Nzedpzcxfn Assessment Last Done: 12/25/24 06:32
ED-Female Genitourinary Assessment Last Done: 12/25/24 06:33
Discharge Date and Time
Print Language: ESTONIAN
[2024-12-25 06:33] LABS: % Basophils 0.2 % (0-2); % Immature Granulocytes 0.4 % (0-0.5); % Lymphocytes 8.6 % (20.5-51.1); % Monocytes 2.2 % (1.7-9.3); % Neutrophils 88.6 % (42.2-75.2); Absolute Lymphocytes 0.7 10^3/uL (1.2-3.4); Absolute Monocytes 0.2 10^3/uL (0.1-0.6); Absolute Neutrophils 7.5 10^3/uL (1.4-6.5); Hemoglobin 13.6 g/dL (12.0-16.0); Mean Corp Hgb Conc. 34.9 g/dL (33.0-37.0); Mean Corpuscular Hgb 31.1 pg (27.0-31.0); Mean Corpuscular Volume 89.2 fL (81.0-99.0); Mean Platelet Volume 11.3 fL (7.4-10.4); Nucleated Red Blood Cells % 0 %; Platelet Count 208 10^3/uL (130-400); Red Blood Cell Count 4.37 10^6/uL (4.20-5.40); White Blood Cell Count 8.5 10^3/uL (4.8-10.8)
[2024-12-25 06:48] LABS: HCG, Serum Qualitative Screen Negative
[2024-12-25 06:51] LABS: ALT (SGPT) 24 U/L (0-35); AST (SGOT) 23 U/L (14-36); Albumin 4.7 g/dl (3.5-5.0); Alkaline Phosphatase 58 U/L (38-126); Blood Urea Nitrogen 10 mg/dl (7-17); Calcium 9.8 mg/dl (8.4-10.2); Carbon Dioxide 23 mmol/L (22-30); Chloride 103 mmol/L (98-107); Glucose 131 mg/dl (70-99); Lipase 131 U/L (23-300); Potassium 4.3 mmol/L (3.5-5.1); Sodium 137 mmol/L (135-145); Total Protein 7.5 g/dl (6.3-8.2); eGFR > 60.00
[2024-12-25 08:00] VITALS: BP 119/69
[2024-12-25 08:01] LABS: Urine Albumin 1+ (Neg - Trace); Urine Bilirubin Negative (Negative); Urine Character Clear (Clear); Urine Color Yellow; Urine Glucose Negative (Negative); Urine Ketone 3+ (Negative); Urine Leukocyte Negative (Negative); Urine Nitrite Negative (Negative); Urine Occult Blood 2+ (Negative); Urine Urobilinogen Negative (Neg - 1+)
[2024-12-25 08:30] LABS: Urine Mucus Few; Urine Squamous Cell >30 /LPF (Few)
[2024-12-25 08:34] LABS: Urine Bacteria Few (Negative)
[2024-12-25 08:40] LABS: Urine White Cell 0-2 /HPF (0-5)
[2024-12-25 09:44] VITALS: BP 116/61
== END 2024-12-25 09:47 | disposition home or self-care (01) ==
LOC: EMR 05:32
PROVIDERS: Emergency Medicine; EMERGENCY PHYSICIAN Emergency Medicine; FAMILY PHYSICIAN Family Medicine Adult Medicine
DX: R10.9 Unspecified abdominal pain (principal); Z87.891 Personal history of nicotine dependence
CPT/HCPCS: 99284; 96374; 96375; 96361; 74176; 80053; 81003; 81015; 83690; 84703; 85025; 87086

== ENCOUNTER → 2025-07-18 14:07 | Outpatient (REF) | payer BC, SELFPAY | LOC: RAD 14:07 | PROVIDERS: ATTENDING PHYSICIAN Specialist; FAMILY PHYSICIAN Family Medicine Adult Medicine | DX: N20.0 Calculus of kidney (principal) | CPT/HCPCS: 74018 ==

== ENCOUNTER → 2025-07-24 18:31 | Outpatient (REF) | payer BC, SELFPAY | LOC: WDC 18:31 | PROVIDERS: ATTENDING PHYSICIAN Obstetrics & Gynecology Gynecology; FAMILY PHYSICIAN Family Medicine Adult Medicine | DX: Z12.31 Encounter for screening mammogram for malignant neoplasm of breast (principal) | CPT/HCPCS: 77063; 77067 ==